=== PATIENT | male | born 1980 | race Caucasian/White ===

== ENCOUNTER 2019-10-11 08:56 | Emergency (ER) | payer OTHER ==
[~2019-10-11] VITALS: Ht 167.6 cm; Wt 78.5 kg
[2019-10-11 09:11] VITALS: Ht 167.6 cm; Wt 78.5 kg
[2019-10-11 10:30] VITALS: BP 143/87
== END 2019-10-11 10:30 | disposition home or self-care (01) ==
LOC: ED 08:56
DX: L72.3 Sebaceous cyst (principal)
CPT/HCPCS: J2001